=== PATIENT | male | born 1985 | race African-American/Black ===

== ENCOUNTER 2019-04-20 10:43 | Emergency (ER) | payer SELFPAY ==
[~2019-04-20] VITALS: Ht 182.9 cm; Wt 76.0 kg
[2019-04-20] MEDS ORDERED: KETOROLAC 60MG/2ML VIAL IM ONE (11:30)
[2019-04-20 11:54] VITALS: BP 138/78
== END 2019-04-20 12:13 | disposition home or self-care (01) ==
LOC: ER 10:43
DX: S39.012A Strain of muscle, fascia and tendon of lower back, initial encounter (principal); M41.9 Scoliosis, unspecified; Z98.890 Other specified postprocedural states; X58.XXXA Exposure to other specified factors, initial encounter; Y93.89 Activity, other specified; Y92.89 Other specified places as the place of occurrence of the external cause; Y99.8 Other external cause status
CPT/HCPCS: 96372; 99283; J1885